=== PATIENT | male | born 1940 | race Caucasian/White ===

== ENCOUNTER 2017-03-06 13:19 | Outpatient (CLI) | payer MEDICARE, BC ==
[~2017-03-06] VITALS: Ht 185.4 cm; Wt 100.9 kg
[~2017-03-06 13:19] MED LIST: FLEXERIL10 MG PO; MULTI-DAY VITAM1 TAB PO
[2017-03-06 15:15] VITALS: BP 130/80; Ht 185.4 cm; Wt 100.9 kg
== END 2017-03-06 20:50 | disposition home or self-care (01) ==
LOC: D.OPS 13:19
DX: D53.9 Nutritional anemia, unspecified (principal)

== ENCOUNTER → 2017-03-08 09:08 | Outpatient (CLI) | payer MEDICARE, BC ==
[2017-03-06 15:15] VITALS: BMI 29.3
== END | disposition home or self-care (01) ==
LOC: D.ECHO 09:08
DX: R53.83 Other fatigue (principal)

== ENCOUNTER 2017-03-13 18:51 | Emergency (ER) | payer MEDICARE, BC ==
[2017-03-06 15:15] VITALS: BMI 29.3
[2017-03-13 20:02] LABS: HEMATOCRIT 26.7 % (42.0-54.0); HEMOGLOBIN 8.9 g/dL (13.5-17.5); MCH 35.3 pg (26.0-34.0); MCHC 33.3 g/dL (31.0-37.0); MEAN PLATELET VOLUME 12.2 fL (7.4-10.4); RBC 2.52 10x6/uL (4.20-6.10); RDW 18.4 % (11.5-14.5); WBC 12.6 10x3/uL (4.8-10.8)
[2017-03-13 20:03] LABS: PLATELET COUNT 53 10x3/uL (130-400)
[2017-03-13 20:10] LABS: ALBUMIN 3.6 g/dL (3.4-5.0); ALKALINE PHOSPHATASE 63 U/L (46-116); ALT (SGPT) 56 U/L (10-68); BILIRUBIN - TOTAL 0.66 mg/dL (0.2-1.3); CALC OSMOLALITY 275 mosm/kg (275-300); CALCIUM 8.3 mg/dL (8.5-10.1); CARBON DIOXIDE 25.2 mmol/L (21.0-32.0); CHLORIDE - SERUM 102 mmol/L (98-107); GLUCOSE 117 mg/dL (74-106); POTASSIUM - SERUM 4.3 mmol/L (3.5-5.1); PROTEIN - SERUM 7.4 g/dL (6.4-8.2); SODIUM 137 mmol/L (136-145); UREA NITROGEN 14 mg/dL (7-18); eGFR NON AFRICAN AMERICAN 78 mL/min (90-120)
[2017-03-13 20:11] LABS: TROPONIN-I < 0.017 ng/mL (0.000-0.060)
[2017-03-13 20:11] LABS: APPEARANCE CLEAR (CLEAR); BILIRUBIN NEGATIVE (NEGATIVE); COLOR YELLOW (YELLOW); GLUCOSE NEGATIVE (NEGATIVE); KETONE NEGATIVE (NEGATIVE); LEUKOCYTE ESTERASE NEGATIVE (NEGATIVE); NITRITE NEGATIVE (NEGATIVE); PROTEIN TRACE mg/dL (NEGATIVE); UROBILINOGEN NORMAL (NORMAL)
[2017-03-13 20:16] LABS: APTT 23.9 SECONDS (22.8-39.4); INR 1.18 (0.85-1.17); PROTIME 14.9 SECONDS (11.6-15.0)
[2017-03-13 20:17] LABS: LYMPHOCYTES 54 % (15-50); MONOCYTES 1 % (2-11); NEUTROPHILS 45 % (40-80); PLATELET ESTIMATE DECREASED
== END 2017-03-13 20:40 | disposition home or self-care (01) ==
LOC: D.ER 18:51
PROVIDERS: Emergency Medicine
DX: I50.9 Heart failure, unspecified (principal); J01.90 Acute sinusitis, unspecified; D64.9 Anemia, unspecified; I45.10 Unspecified right bundle-branch block

== ENCOUNTER 2017-03-17 08:41 | Outpatient (CLI) | payer MEDICARE, BC ==
[2017-03-17 12:53] VITALS: BP 111/60; Ht 185.4 cm
--- NOTE | 2017-03-17 12:55 | NUR ---
1230-STARTED IV TO LEFT DORSAL FOOT TIMES ONE ATTEMPT WITH 20G CATHETER, NORMAL SALINE INITIATED VIA PUMP AT KVO RATE.
--- NOTE | 2017-03-17 16:30 | NUR ---
AT ONE HOUR POST TRANSFUSION CHECK C/O CHILLS, SHAKING, COLD AND SHORTNESS OF BREATH. VS 100.4T BP 152/90 HR 96 RR 18. PAGED FURNACE HELPER FOR DR SMITH. AWAITING ORDERS
--- NOTE | 2017-03-17 16:45 | NUR ---
CONTINUE TO AWAIT CALL BACK. TEMP 101.5 BP 162/98 HR 111 RR 22. WILL CONTINUE TO MONITOR AND AWAIT ORDERS.
--- NOTE | 2017-03-17 17:00 | NUR ---
SPOKE WITH DR LORA, NEW ORDERS NOTED.
--- NOTE | 2017-03-17 19:18 | NUR ---
TRANSFERRED TO ER VIA WC PER DR LORA ORDERS. BP 97/62 TEMP 100.0 RR 20.
[2017-03-17] MEDS ORDERED: FLOMAX0.4 MG PO (22:55)
[2017-03-17] MEDS ORDERED: XANAX0.5 MG PO (22:56)
== END 2017-03-17 19:20 | disposition home or self-care (01) ==
LOC: D.CT 08:41
DX: C85.90 Non-Hodgkin lymphoma, unspecified, unspecified site (principal)

== ENCOUNTER 2017-03-17 19:01 | Inpatient (IN) | payer MEDICARE, BC ==
[~2017-03-17] VITALS: Ht 185.4 cm; Wt 96.5 kg
[2017-03-17 20:18] LABS: APPEARANCE CLEAR (CLEAR); BILIRUBIN NEGATIVE (NEGATIVE); COLOR YELLOW (YELLOW); GLUCOSE NEGATIVE (NEGATIVE); KETONE NEGATIVE (NEGATIVE); LEUKOCYTE ESTERASE NEGATIVE (NEGATIVE); NITRITE NEGATIVE (NEGATIVE); PROTEIN TRACE mg/dL (NEGATIVE); UROBILINOGEN NORMAL (NORMAL)
[2017-03-17 21:19] LABS: HEMATOCRIT 25.1 % (42.0-54.0); HEMOGLOBIN 8.4 g/dL (13.5-17.5); MCH 33.5 pg (26.0-34.0); MCHC 33.5 g/dL (31.0-37.0); PLATELET COUNT 54 10x3/uL (130-400); RBC 2.51 10x6/uL (4.20-6.10); RDW 18.8 % (11.5-14.5); WBC 6.2 10x3/uL (4.8-10.8)
[2017-03-17 21:30] LABS: ALBUMIN 2.9 g/dL (3.4-5.0); ALKALINE PHOSPHATASE 71 U/L (46-116); ALT (SGPT) 43 U/L (10-68); BILIRUBIN - TOTAL 0.59 mg/dL (0.2-1.3); CALC OSMOLALITY 269 mosm/kg (275-300); CALCIUM 8.3 mg/dL (8.5-10.1); CARBON DIOXIDE 23.2 mmol/L (21.0-32.0); CHLORIDE - SERUM 102 mmol/L (98-107); GLUCOSE 126 mg/dL (74-106); LIPASE 95 U/L (73-393); POTASSIUM - SERUM 4.3 mmol/L (3.5-5.1); PROTEIN - SERUM 7.4 g/dL (6.4-8.2); SODIUM 134 mmol/L (136-145); UREA NITROGEN 13 mg/dL (7-18); eGFR NON AFRICAN AMERICAN 78 mL/min (90-120)
[2017-03-17 21:57] LABS: LYMPHOCYTES 52 % (15-50); MONOCYTES 2 % (2-11); NEUTROPHILS 46 % (40-80); PLATELET ESTIMATE DECREASED
--- NOTE | 2017-03-17 22:15 | NUR ---
PT ARRIVES TO FLOOR FROM THE ER ACCOMPANIED BY NURSE AND PT'S SPOUSE. ADMISSION ASSESSMENT COMPLETED, VSS, AFEBRILE. RESP EVEN UNLABORED. RA SATS 96%. ADMISSION ASSESSMENT COMPLETED, ADMISSION HISTORY COMPLETED. MEDICATIONS RECONCILED AT THE BEDSIDE. PT WITH IV TO RIGHT FOOT, NS STARTED @ 100 ML/HR UPON ARRIVAL. UNIT ROUTINES AND PROTOCOLS DISCUSSED WITH PT AND HIS SPOUSE. THEY VERBALIZE UNDERSTANDING. CALL LIGHT PLACED WITHIN REACH. WILL CONT TO MONITOR.
[2017-03-17 22:49] VITALS: Ht 185.4 cm; Wt 96.5 kg
[2017-03-17] MEDS ORDERED: FLOMAX0.4 MG PO (22:55)
[2017-03-17] MEDS ORDERED: XANAX0.5 MG PO (22:56)
--- NOTE | 2017-03-18 00:06 | NUR ---
IV TO RIGHT FOOT BEGAN BURNING WITH VISIBLE STREAKING UP PTS LEG DURING THE LEVAQUIN INFUSION. I STOPPED THE LEVAQUIN AND RESTARTED HIS NS, WHICH PT STATES STILL CONTINUED TO BURN AFTER A FEW MINUTES. I THEN STOPPED ALL FLUIDS, AND SALINE LOCKED PTS IV. I DID PROVIDE AN ICE PACK HOWEVER, THE REDNESS AND STREAKING HAD IMPROVED WITHIN JUST A FEW MINUTES OF STOPPING THE IV, SO ICE PACK WAS NOT PLACED. PT ALSO STATES THE BURNING HAS SUBSIDED WELL. IV TO RIGHT FOOT REMAINS SALINE LOCKED AT THIS TIME. PT IS EATING AND DRINKING WITHOUT ANY DIFFICULTY AT THIS TIME. WILL REASSESS AND CONTINUE TO MONITOR PT CLOSELY. BED LOW, CALL LIGHT IN REACH, SIDE RAILS X 2, HOB 30 DEGREES. PT TO CALL WHEN ANY NEEDS OR CHANGES.
--- NOTE | 2017-03-18 04:16 | NUR ---
PT RESTING COMFORTABLY, EASILY ROUSABLE TO VERBAL STIMULI, LARGE ICE WATER GIVEN PER REQUEST. FOR [email or web address], I AM RUNNING IT OVER 4 R/T PT HAVING STREAKING PREVIOUSLY WITH THE LEVAQUIN. PT DENIES BURNING OR STREAKING AT THIS TIME. CONTINUE TO MONITOR CLOSELY. BED LOW, CALL LIGHT IN REACH, SIDE RAILS X 2, HOB FLAT.
[2017-03-18 04:59] VITALS: BP 119/70
--- NOTE | 2017-03-18 07:30 | NUR ---
Received report, pt alert and oriented with no c/o pain with exception of rt flank pain when coughing. Denies shortness of breath (none observed). Patent IV to rt foot with no s/s of infiltration, no tenderness. Pt is up ad kevin in room, very independent and able to make needs known.
[2017-03-18 09:34] VITALS: BP 118/68
--- NOTE | 2017-03-18 11:10 | NUR ---
Spouse present in room. Pt at sink brushing teeth, gait steady. Pt is continent and denies needs, denies SOB, denies pain at this time. No obvious distress noted.
--- NOTE | 2017-03-18 13:45 | NUR ---
IV antibiotics infused, IV continues to be patent. Pt states he wishes to rest with light off. Call light and personal items in reach. No s/s distress.
[2017-03-18 13:51] VITALS: BP 123/80
--- NOTE | 2017-03-18 15:07 | NUR ---
Scant amt of blood in IV "j-loop". Flushed with 10ml normal saline flush. IV patent, non-tender. IV antibiotics infusing without difficulty. SCDs not placed at this time due to IV is in rt foot. Pt will go back to bed after IV infused and SCDs will be placed at that time.
[2017-03-18 16:53] VITALS: BP 124/73
--- NOTE | 2017-03-18 17:05 | NUR ---
IV antibiotics infused without difficulty. IV to rt foot continues to be patent. Spouse present at bedside. No c/o pain, no s/s distress. Urinal provided for convenience if IV fluids increase urine output/urgency.
[2017-03-18 19:00] VITALS: BP 142/61
--- NOTE | 2017-03-18 19:07 | NUR ---
IV fluids reduced slightly (from 100ml to 75ml per hour) due to occasional burning sensation to IV insertion site. No erythema, no edema to area.
--- NOTE | 2017-03-18 19:38 | NUR ---
RECEIVED REPORT, WILL ASSUME CARE OF PT, PT SITTING UP IN CHAIR, DENIES ANY NEEDS, CALL LIGHT IN REACH, WILL CONTINUE PLAN OF CARE
[2017-03-19] VITALS: BP 96/53
[2017-03-19 04:00] VITALS: BP 111/74
[2017-03-19 06:18] LABS: HEMATOCRIT 23.8 % (42.0-54.0); HEMOGLOBIN 8.1 g/dL (13.5-17.5); MCH 34.2 pg (26.0-34.0); MCV 100.4 fL (80.0-100.0); MEAN PLATELET VOLUME 12.4 fL (7.4-10.4); PLATELET COUNT 63 10x3/uL (130-400); RBC 2.37 10x6/uL (4.20-6.10); RDW 18.8 % (11.5-14.5); WBC 6.5 10x3/uL (4.8-10.8)
[2017-03-19 06:35] LABS: ALBUMIN 2.6 g/dL (3.4-5.0); BILIRUBIN - DIRECT 0.2 mg/dL (0.00-0.30); BILIRUBIN - INDIRECT 0.69 mg/dL (0.00-1.00); BILIRUBIN - TOTAL 0.89 mg/dL (0.2-1.3)
[2017-03-19 07:11] LABS: LYMPHOCYTES 42 % (15-50); MONOCYTES 4 % (2-11); NEUTROPHILS 44 % (40-80); PLATELET ESTIMATE DECREASED
--- NOTE | 2017-03-19 07:15 | NUR ---
RECEIVED REPORT. ASSUMED CARE OF PATIENT. CALL LIGHT WITHIN REACH. PATIENT SITTING UP IN CHAIR AT BEDSIDE. 20 GAUGE TO RIGHT FOOT WITH IV FLUIDS INFUSING ORDERED. DENIES NEEDS. NO DISTRESS.
[2017-03-19 08:13] VITALS: BP 128/78
[2017-03-19 11:58] VITALS: BP 111/75
--- NOTE | 2017-03-19 12:45 | NUR ---
PREMEDICATED WITH TYLENOL AND BENADRYL FOR BLOOD TRANSFUSION.
--- NOTE | 2017-03-19 13:47 | NUR ---
1310 BLOOD TRANSFUSION STARTED. PATIENT STATES HE FEELS FINE, DENIES ANY S/S OF BLOOD TRANSFUSION REACTION. PATIENTS IS AT BEDSIDE.
--- NOTE | 2017-03-19 14:24 | NUR ---
TOLERATING BLOOD TRANSFUSION WELL. NO DISTRESS.
--- NOTE | 2017-03-19 17:30 | NUR ---
BLOOD TRANSFUSION COMPLETED. TOLERATED WELL. NO S/S OF REACTION TO BLOOD TRANSFUSION. CALL LIGHT WITHIN REACH. NO DISTRESS.
[2017-03-19 19:20] VITALS: BP 134/74
--- NOTE | 2017-03-19 19:30 | NUR ---
PT RESTING IN BEDSIDE RECLINER. ALERT/ORIENTED. DENIES PAIN OR DISCOMFORT. NONLABORED RESPIRATIONS ON ROOM AIR. SEE SHIFT ASSESSMENT AND CPOC. MONITOR AND CPOC.
[2017-03-20 00:40] VITALS: BP 114/70
--- NOTE | 2017-03-20 03:20 | NUR ---
AWAKE, UP IN BATHROOM. IVF INFUSING TO RIGHT FOOT VIA 20G, ABT UP AND INFUSING. ASSESSED IV SITE. NO REDNESS OR SWELLING. PT STATES IT HAS BEEN IN PLACE SINCE ADMIT AND HE ALSO RECIEVED BLOOD THROUGH IT. SPOKE WITH PT ON IF HE HAS BEEN SEEN BY THE VASCULAR ACCESS NURSE AND HE HAS NOT. WILL HAVE HER ASSESS PATIENT ON DAY SHIFT AND SEE IF SHE FEELS THERE IS ANY OTHER POSSIBLE ACCESS POINT. WILL CONTINUE TO MONITOR.
[2017-03-20 04:30] VITALS: BP 125/78
[2017-03-20 06:18] LABS: BASOPHILS 0 % (0-2); EOSINOPHILS 0.2 % (0-7); HEMATOCRIT 26.4 % (42.0-54.0); HEMOGLOBIN 8.8 g/dL (13.5-17.5); IMMATURE GRANULOCYTES 4.2 % (0-5); LYMPHOCYTES 54.3 % (15-50); MCHC 33.3 g/dL (31.0-37.0); MCV 98.9 fL (80.0-100.0); MEAN PLATELET VOLUME 13.1 fL (7.4-10.4); MONOCYTES 15.4 % (2-11); NEUTROPHILS 25.9 % (40-80); PLATELET COUNT 70 10x3/uL (130-400); RBC 2.67 10x6/uL (4.20-6.10); RDW 19.3 % (11.5-14.5)
[2017-03-20 06:32] LABS: CALC OSMOLALITY 272 mosm/kg (275-300); CALCIUM 7.9 mg/dL (8.5-10.1); CARBON DIOXIDE 23.3 mmol/L (21.0-32.0); CHLORIDE - SERUM 105 mmol/L (98-107); CREATININE - SERUM 0.9 mg/dL (0.6-1.3); GLUCOSE 110 mg/dL (74-106); POTASSIUM - SERUM 4.3 mmol/L (3.5-5.1); SODIUM 136 mmol/L (136-145); UREA NITROGEN 12 mg/dL (7-18); eGFR NON AFRICAN AMERICAN 88 mL/min (90-120)
--- NOTE | 2017-03-20 07:33 | NUR ---
AM ROUNDS- PT UP TO CHAIR, WITH EYES CLOSED. RESP EVEN AND UNLABORED. RT FOOT IV INFUSING NS AT 75CC/HR. CALL LIGHT IN REACH, NAD NOTED, WILL CONTINUE TO MONITOR.
[2017-03-20 08:00] VITALS: BP 117/69
--- NOTE | 2017-03-20 08:15 | NUR ---
AM MEDS GIVEN AT THIS TIME. PT UP TO CHAIR, NEW BAG OF IVFS HUNG. PROVIDED PT WITH A BOX OF KLENEX. PT DENIES ANY NEEDS AT THIS TIME. CALL LIGHT IN REACH, NAD NOTED, WILL CONTINUE TO MONITOR.
[2017-03-20 13:34] VITALS: BP 108/62
--- NOTE | 2017-03-20 15:00 | NUR ---
PT SET UP FOR SHOWER, RT FOOT IV WRAPPED. AT BEDSIDE, PT WILL NOTIFY WHEN READY TO BE HOOKED BACK UP TO IV FLUIDS. NAD NOTED, WILL CONTINUE TO MONITOR.
[2017-03-20 17:18] VITALS: BP 122/71
[2017-03-20 19:00] VITALS: BP 111/59
--- NOTE | 2017-03-20 19:44 | NUR ---
RECEIVED REPORT, WILL ASSUME CARE OF PT,SITTING IN CHAIR, TALKING ON PHONE, DENIES ANY NEEDS AT THIS TIME, CALL LIGHT IN REACH, WILL CONTINUE PLAN OF CARE
[2017-03-21] VITALS: BP 117/72
--- NOTE | 2017-03-21 02:55 | NUR ---
CALL LIGHT IN REACH, WILL CONTINUE WITH PLAN OF CARE.
[2017-03-21 04:03] VITALS: BP 113/72
--- NOTE | 2017-03-21 04:47 | NUR ---
ASSESSMENT COMPLETE, SEE FLOWSHEET, PT SLEEPING, BED IS LOW, SRX2, CALL LIGHT IN REACH, WILL CONTINUE PLAN OF CARE
[2017-03-21 06:03] LABS: CALC OSMOLALITY 273 mosm/kg (275-300); CALCIUM 7.8 mg/dL (8.5-10.1); CARBON DIOXIDE 22.4 mmol/L (21.0-32.0); CHLORIDE - SERUM 103 mmol/L (98-107); GLUCOSE 115 mg/dL (74-106); POTASSIUM - SERUM 3.7 mmol/L (3.5-5.1); SODIUM 137 mmol/L (136-145); UREA NITROGEN 11 mg/dL (7-18); eGFR NON AFRICAN AMERICAN 78 mL/min (90-120)
[2017-03-21 06:25] LABS: HEMATOCRIT 26.7 % (42.0-54.0); HEMOGLOBIN 8.8 g/dL (13.5-17.5); MCH 32.6 pg (26.0-34.0); MCV 98.9 fL (80.0-100.0); MEAN PLATELET VOLUME 12.5 fL (7.4-10.4); PLATELET COUNT 73 10x3/uL (130-400); RDW 18.8 % (11.5-14.5); WBC 6.1 10x3/uL (4.8-10.8)
[2017-03-21 07:35] LABS: LYMPHOCYTES 64 % (15-50); MONOCYTES 14 % (2-11); NEUTROPHILS 15 % (40-80); PLATELET ESTIMATE DECREASED; PLATELET MORPHOLOGY GIANT PLTS PRESENT
[2017-03-21 07:36] LABS: SMUDGE CELLS 1+
--- NOTE | 2017-03-21 07:45 | NUR ---
INTRODUCED MYSELF TO PT PRIMARY RN FOR TODAYS SHIFT. AM ROUNDS COMPLETED. PT A&O SITTING UP IN BEDSIDE CHAIR RESTING QUIETLY. SHIFT ASSESSMENT COMPLETED. PT HOPING TO BE DISCHARGED TODAY. PT HAS R.FOOT PIV WITH DRSG CDI AND SWAB CAPS IN USE. PT DENIES ANY CURRENT PAIN OR NEEDS. CL IN REACH, WILL CPOC.
[2017-03-21 08:00] VITALS: BP 110/62
[2017-03-21 11:14] LABS: HAPTOGLOBIN 333 mg/dL (34-200)
[2017-03-21 12:00] VITALS: BP 121/77
[2017-03-21 12:14] LABS: HEPATITIS C ANTIBODY <0.1 (0.0-0.9)
--- NOTE | 2017-03-21 12:58 | NUR ---
DISCONNECTED PT FROM IVPB AND SL. PT HOPING TO BE DISCHARGED AND JUST WAITING ON PAPERS. CL IN REACH, BED IN LOWEST, SIDE RAILS X2 AT BEDSIDE. WILL CPOC.
[2017-03-21] MEDS ORDERED: LEVAQUIN750 MG PO (13:55)
[2017-03-21] MEDS ORDERED: FLORAJEN3 CAPS460 MG PO (13:55)
--- NOTE | 2017-03-21 14:12 | NUR ---
D/C PTS R.FOOT PIV WITH CATH TIP FULLY INTACT. PT WAITING ON DISCHARGE PAPERS. ORDER HAS BEEN PUT IN AND HE HAS COLLECTED HIS BELONGINGS READY TO GO.
--- NOTE | 2017-03-21 15:14 | NUR ---
DISCHARGE TEACHING PROVIDED AND PAPERS SIGNED. PT READY TO LEAVE AND DENIES ANY FURTHER NEEDS. HER FOR TRANSPORTATION.
--- NOTE | 2017-03-21 16:49 | NUR ---
Patient Name: CECILIO ALEXIS Admission Status: ER Accout number: [id number] Admission Date: 03-17-2017 : 1940 Admission Diagnosis:PNEUMONIA, UNSPECIFIED ORGANISM Attending: OZ DENISE Current LOS: 4 Anticipated DC Date: 03-21-2017 Planned Disposition: Home Primary Insurance: MEDICARE A & B LATE ENTRY: Discharge Planning Comments: * Is the patient Alert and Oriented? Yes 0 * How many steps to enter\exit or inside your home? NONE 0 * PCP DR. DENISE 0 * Pharmacy [facility] 0 * Preadmission Environment Home with Family 0 * ADLs Independent 0 * Equipment None 0 * Other Equipment NO MEDICAL EQUIPMENT PROVIDER PREFERENCE 0 * List name and contact numbers for known caregivers / representatives who currently or will assist patient after discharge: OJSE ALEXIS, SPOUSE, 0 * Community resources currently utilized None 0 * Please name any agencies selected above. NONE 0 * Additional services required to return to the preadmission environment? No 0 * Can the patient safely return to the preadmission environment? Yes 0 * Has this patient been hospitalized within the prior 30 days at any hospital? No 0 CM MET WITH PT IN ROOM TO DISCUSS DISCHARGE PLANNING AND NEEDS. PT REPORTS LIVING AT HOME INDEPENDENTLY WITH SPOUSE. PT HAS NO MEDICAL EQUIPMENT AND NO OUTSIDE SERVICES ASSISTING IN THE HOME. CM DISCUSSED AVAILABILITY OF HOME HEALTH, REHAB SERVICES AND MEDICAL EQUIPMENT. PT DENIES DISCHARGE NEEDS, REPORTS HIS SPOUSE WILL PICK HIM UP FOR DISCHARGE HOME. IMPORTANT MESSAGE FROM MEDICARE PROVIDED AND EXPLAINED. Still Operator Helper: Niels Posada
== END 2017-03-21 15:15 | disposition home or self-care (01) | DRG 194 ==
LOC: D.ER 19:01 → D.M2 21:17
PROVIDERS: Emergency Medicine; Family Medicine Adult Medicine; Internal Medicine Hematology & Oncology; ADMIT Emergency Medicine
DX: J18.9 Pneumonia, unspecified organism (principal); D61.818 Other pancytopenia; D46.22 Refractory anemia with excess of blasts 2; T45.1X5A Adverse effect of antineoplastic and immunosuppressive drugs, initial encounter; Z85.72 Personal history of non-Hodgkin lymphomas

== ENCOUNTER 2017-03-30 09:30 | Outpatient (CLI) | payer MEDICARE, BC ==
[~2017-03-30] VITALS: Ht 185.4 cm; Wt 96.8 kg
[~2017-03-30 09:30] MED LIST changes: +FLOMAX0.4 MG PO; +FLORAJEN3 CAPS460 MG PO; +LEVAQUIN750 MG PO; +XANAX0.5 MG PO
[2017-03-30] MEDS ORDERED: CLEOCIN HCL300 MG PO (11:11)
[2017-03-30] MEDS ORDERED: ZOFRAN ODT4 MG/UDTAB PO (11:11)
[2017-03-30] MEDS ORDERED: VIDAZA IV (11:20)
[2017-03-30 11:22] VITALS: BP 118/69; Ht 185.4 cm; Wt 96.8 kg
== END 2017-03-30 16:15 | disposition home or self-care (01) ==
LOC: D.OPS 09:30
DX: D64.9 Anemia, unspecified (principal)

== ENCOUNTER 2017-05-31 08:05 | Outpatient (CLI) | payer MEDICARE, BC ==
[~2017-05-31] VITALS: Ht 185.4 cm; Wt 96.4 kg
[~2017-05-31 08:05] MED LIST changes: +CLEOCIN HCL300 MG PO; +VIDAZA IV; +ZOFRAN ODT4 MG/UDTAB PO
[2017-05-31 08:12] VITALS: BP 120/64; Ht 185.4 cm; Wt 96.4 kg
--- NOTE | 2017-05-31 15:49 | NUR ---
1500--IV FLUSH COMPLETE, IV DC'D. AMINTA TREJO 9300--DISCHARGE INSTRUCTIONS GIVEN, PT VERBALIZES UNDERSTANDING. PT OFF UNIT VIA WC. AMINTA TREJO
== END 2017-05-31 15:30 | disposition home or self-care (01) ==
LOC: D.OPS 08:05 → D.LAB 13:54 → D.OPS 15:30
DX: D64.9 Anemia, unspecified (principal)

== ENCOUNTER 2017-07-06 09:54 | Outpatient (CLI) | payer MEDICARE, BC ==
[2017-07-06 11:59] VITALS: BP 104/66; Ht 185.4 cm
== END 2017-07-06 13:15 ==
LOC: D.OPS 09:54
DX: D46.4 Refractory anemia, unspecified (principal)

== ENCOUNTER 2017-07-20 09:38 | Outpatient (CLI) | payer MEDICARE, BC ==
[~2017-07-20] VITALS: Ht 185.4 cm; Wt 94.5 kg
[2017-07-20 10:18] VITALS: Ht 185.4 cm; Wt 94.5 kg
== END 2017-07-20 13:10 | disposition home or self-care (01) ==
LOC: D.OPS 09:38
DX: D46.9 Myelodysplastic syndrome, unspecified (principal)

== ENCOUNTER 2017-10-30 10:47 | Outpatient (CLI) | payer MEDICARE, BC ==
[~2017-10-30] VITALS: Ht 185.4 cm; Wt 89.1 kg
[2017-10-30] MEDS ORDERED: VIBRAMYCIN 100100 MG PO (11:34)
[2017-10-30 11:44] VITALS: BP 117/76; Ht 185.4 cm; Wt 89.1 kg
== END 2017-10-30 18:50 | disposition home or self-care (01) ==
LOC: D.OPS 10:47
DX: D64.9 Anemia, unspecified (principal)